=== PATIENT | female | born 1965 | race Caucasian/White ===

== ENCOUNTER 2016-12-31 15:19 | Emergency (ER) | payer OTHER ==
[~2016-12-31] VITALS: Ht 172.7 cm; Wt 80.9 kg
[2016-12-31 15:40] VITALS: BP 137/72; PULSE 52; RESP 16; O2SAT 99
[2016-12-31] MEDS ORDERED: FLUO20CA25 PO (15:44)
[2016-12-31] MEDS ORDERED: ACYC400T2 PO (15:44)
[2016-12-31] MEDS ORDERED: THYR60TA2 PO (15:44)
--- NOTE | 2016-12-31 17:33 | ED.REPORT ---
HPI-Headache Date of Service Dec 31, 2016 ED Provider: Panchito Hong PA-C Leia is otherwise healthy 51-year-old female presents for evaluation following exposure to diesel exhaust. 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 She stopped the bus approximately 1 minute after she noticed this. She remained in the area of the idling bus for approximately one half hour. She reports that she became nauseated, dizzy and developed a headache. At time of presentation she reports that her nausea and dizziness have subsided but she still retains a mild headache, which she rates 4/10. Nursing Notes Stated Complaint: CHEMICAL EXPOSURE,HEADACHE,DIZZY,NAUSEA Chief Complaint: General Complaint Nursing Notes Reviewed: Yes Allergies: Coded Allergies: No Known Drug Allergies (Verified Allergy, Unknown, 12/31/16) Scheduled Acyclovir (Acyclovir) 400 Mg Tablet 400 MG PO DAILY Fluoxetine (Fluoxetine) 20 Mg Capsule 20 MG PO DAILY Miscellaneous Medications Thyroid,Pork ([place] Thyroid) 60 Mg Tablet Unknown Dose PO General Time Seen by MD: 17:11 Chief Complaint Headache Sudden in Onset?: No Past Medical History Past Medical History Denies Review of Systems Review of Systems Note: Negative unless stated otherwise in history of present illness Physical Exam General: Well appearing, well developed, well nourished, no acute distress. Head: Atraumatic, normocephalic. Eyes: No scleral icterus or injection. No discharge. Vision grossly intact. ENT: Voice clear, hearing grossly intact. Respiratory: Regular rate and rhythm. Breath sounds present, clear to auscultation and equal bilaterally. No respiratory distress. No increased work of breathing, speaks in complete sentences. Cardiovascular: Regular rate and rhythm, without murmur, gallop or rub. No pedal edema. Gastrointestinal: Abdomen flat and non-tender without guarding or rebound. Bowel sounds normoactive. Skin: Warm and dry. Neurological: Grossly nonfocal. Psychological: Alert and oriented. Speech appropriate, linear and logical. Behavior appropriate. Initial Vital Signs Vital Signs (First) Date Time Temp Pulse Resp B/P Pulse Ox O2 Delivery O2 Flow Rate FiO2 12/31/16 15:40 36.4 52 16 137/72 99 Room Air Initial VS: Vital signs normal Interpretation & Diagnostics Interpretation & Diagnostics: ABG with cooximetry reveals fCOHb = 1.5% and fMETHb equal to 0.3% Re-Eval/Medical Decision Med Decision/Clinical Course I discussed this case with Dr. Hany Zavaleta Otherwise healthy 51-year-old female presents for evaluation following to be true exposure to diesel exhaust. He complains of nausea, dizziness, headache currently after exposure. On presentation she complains of only a "mild" headache of 4/10. Arterial blood gas with cold oximetry is reassuring against carbon monoxide toxicity. Patient feels well and wishes to be discharged. I believe she is stable and safe for discharge to home as well as return to work. Advise primary care follow-up and provided emergency return precautions. Patient verbalizes understanding and consent to the plan Discharge & Departure Impression: Primary Impression: Occupational exposure to toxic agents in other industries Disposition: Home Discharge Condition All VS Reviewed: Yes Condition: Stable Additional Instructions: Evaluation in emergency department following a diesel exhaust. History, physical and blood tests are reassuring that she did not have a dangerous level of exposure to diesel exhaust. I believe you are stable and safe to be discharged home. You are free to return to work. Follow up with your primary care provider if you have any further concerns. Return to emergency department for new or worsening symptoms including vomiting , severe headache. Referrals: David Miguel DO (PCP) EDSupervising Provider for APC: Frantz Beltran DO copies to: David Miguel Seth PA-C Dec 31, 2016 17:33
[2016-12-31 18:31] VITALS: BP 147/78; PULSE 52; RESP 18; O2SAT 99
== END 2016-12-31 18:31 | disposition home or self-care (01) ==
LOC: SED 15:19
DX: R11.0 Nausea (principal); R42 Dizziness and giddiness; R51 Headache; T58.01XA Toxic effect of carbon monoxide from motor vehicle exhaust, accidental (unintentional), initial encounter; X58.XXXA Exposure to other specified factors, initial encounter; Y92.9 Unspecified place or not applicable; Y93.89 Activity, other specified; Y99.8 Other external cause status; Z57.39 Occupational exposure to other air contaminants